=== PATIENT | female | born 1980 ===

== ENCOUNTER 2017-09-14 01:55 | Inpatient (IN) ==
[2017-09-14] MEDS ORDERED: HYDROmorphone 2 MG/1 ML VIAL IV PRN (02:35)
[2017-09-14] MEDS ORDERED: ACETAMINOPHEN 325 MG TABLET PO PRN (02:35)
[2017-09-14] MEDS ORDERED: ONDANSETRON 4 MG/2 ML VIAL IV PRN ×2 (02:35→11:07)
[2017-09-14] MEDS: cefOXitin 2,000 MG in SYRINGE 1 EACH IV SCH ×4 (04:01→20:55)
[2017-09-14] MEDS: DEXTROSE 5% LACTATED RINGERS 1,000 ML IV SCH ×3 (04:10→19:06)
[2017-09-14] MEDS: ENOXAPARIN 40 MG/0.4 ML SYRINGE SUBCUT SCH (08:13)
[2017-09-14] MEDS: PANTOPRAZOLE 40 MG TABLET PO SCH (08:30)
[2017-09-14] MEDS ORDERED: TISSUE ADHESIVE 1 EACH APPLICATOR TOP ONE ×2 (08:57→09:38)
[2017-09-14] MEDS ORDERED: LIDOCAINE 1% 5 ML VIAL ONE ×2 (08:58→10:06)
[2017-09-14] MEDS ORDERED: ONDANSETRON 4 MG/2 ML VIAL ONE ×2 (11:17→13:35)
[2017-09-14] MEDS ORDERED: HYDROmorphone 2 MG/1 ML VIAL ONE (11:17)
[2017-09-14] MEDS: HYDROmorphone 2 MG/1 ML VIAL IV PRN ×2 (11:18→11:28)
[2017-09-14] MEDS ORDERED: SEVOFLURANE 1 UNIT/15 MINUTE INH ONE (13:33)
[2017-09-14] MEDS ORDERED: MIDAZOLAM 2 MG/2 ML VIAL ONE (13:33)
[2017-09-14] MEDS ORDERED: LACTATED RINGERS 1,000 ML IV ONE (13:34)
[2017-09-14] MEDS ORDERED: PROPOFOL 200 MG/20 ML VIAL IV ONE (13:34)
[2017-09-14] MEDS ORDERED: fentaNYL 100 MCG/2 ML VIAL ONE (13:35)
[2017-09-14] MEDS ORDERED: ROCURONIUM 100 MG/10 ML VIAL IV ONE (13:35)
[2017-09-14] MEDS ORDERED: GLYCOPYRROLATE 0.4 MG/2 ML VIAL ONE (13:35)
[2017-09-14] MEDS ORDERED: NEOSTIGMINE 10 MG/10 ML VIAL ONE (13:46)
[2017-09-14] MEDS ORDERED: PROMETHAZINE 25 MG/1 ML VIAL IV PRN (19:26)
[2017-09-14] MEDS ORDERED: PROMETHAZINE 25 MG/1 ML VIAL IM PRN (19:27)
[2017-09-14] MEDS ORDERED: PROMETHAZINE INJ 25 MG in SODIUM CHLORIDE 0.9% 50 ML IV PRN (19:32)
[2017-09-15] MEDS: cefOXitin 2,000 MG in SYRINGE 1 EACH IV SCH ×2 (03:02→09:07)
[2017-09-15] MEDS: DEXTROSE 5% LACTATED RINGERS 1,000 ML IV SCH (03:02)
[2017-09-15 06:15] LABS: Basophils % 0.1 % (0.0-0.8); Eosinophils % 0.5 % (0.00-10.9); Hemoglobin 9.9 GM/DL (12.0-16.0); Immature Granulocytes % 0.3 %; Immature Granulocytes Absolute 0.02 #; Lymphocytes # 2.9 10*3/uL (1.4-4.0); Lymphocytes % 37.6 % (21.3-54.2); Mean Corpuscular Hemoglobin 29 PG (27-34); Mean Corpuscular Volume 87.2 FL (87-102); Monocytes # 0.6 10*3/uL (0.11-0.8); Monocytes % 8.3 % (1.7-12.7); Neutrophils # 4.1 10*3/uL (1.4-7.4); Neutrophils % 53.2 % (38.7-73.9); Platelet Count 216 T/CUMM (130-400); Red Blood Count 3.44 MC/CUMM (3.8-5.5); Red Cell Distribution Width 14.1 % (9.3-17.3); White Blood Count 7.7 T/CUMM (4-12)
[2017-09-15 06:42] LABS: Calcium 8.1 MG/DL (8.5-10.1); Potassium 3.6 MMOL/L (3.5-5.1)
[2017-09-15] MEDS: PANTOPRAZOLE 40 MG TABLET PO SCH (09:03)
[2017-09-15] MEDS: ENOXAPARIN 40 MG/0.4 ML SYRINGE SUBCUT SCH (09:07)
[2017-09-15 11:23] VITALS: BP 105/55
== END 2017-09-15 14:10 | disposition home or self-care (01) | DRG 343 ==
LOC: EDUNIT# → EDBD → N.ED 01:55 → N.EDINP 02:35 → N.3E 03:03
PROVIDERS: ADMIT Surgery; ATTEND Surgery